=== PATIENT | female | born 1965 | race African-American/Black ===

== ENCOUNTER → 2020-11-30 | Outpatient (CLI) | payer OTHER ==
--- NOTE | 2020-11-30 16:06 | KCIC ---
EXAM: Lumbar spine MRI without contrast. HISTORY: Lumbar radiculopathy. TECHNIQUE: Multiplanar, multisequence magnetic resonance imaging of the lumbar spine was performed wi thout contrast. COMPARISON: None. FINDINGS: There is minimal lumbar scoliosis. There is no significant listhesis. There is degenerative endplate remodeling at the mid and lower lumbar levels. There is disc space narrowing, Schmorl's nod e formation and osteophytosis at L5-S1. There is no acute osseous finding. There is no suspicious oss eous lesion. The conus terminates at L1. At L1-L2, there is no stenosis. At L2-L3, there is mild pleural facet arthropathy. There is mild bilateral foraminal stenosis. There is minimal central canal stenosis. At L3-L4, there is a posterior central to left paracentral disc protrusion with slight superior and i nferior extrusion superimposed on a disc bulge and endplate remodeling. There is mild bilateral facet arthropathy. There is prominent dorsal epidural fat. There is mild bilateral foraminal stenosis. The re is moderate to severe central canal stenosis. At L4-L5, there is a broad-based posterior central disc protrusion superimposed on a disc bulge and e ndplate remodeling. There is moderate bilateral facet arthropathy. There is prominent dorsal epidural fat. There is moderate left greater than right foraminal stenosis. There is moderate to severe centr al canal stenosis. At L5-S1, there is a right paracentral to lateral recess disc protrusion and annular tear with minima l inferior extrusion. There are also bilateral lateral recess to extra foraminal disc osteophyte comp lexes. This is superimposed on a disc bulge and endplate osteophytosis. There is mild bilateral facet arthropathy. There is moderate right and moderate to severe left foraminal stenosis. There is narrow ing of the right lateral recess and abutment of the traversing right S1 nerve root. IMPRESSION: Multilevel degenerative change involving the lumbar spine, described in detail above. Thi s results in minimal central canal stenosis at L2-L3, mild bilateral foraminal and moderate to severe central canal stenosis at L3-L4, moderate left greater than right foraminal and moderate to severe c entral canal stenosis at L4-5, and moderate right and moderate to severe left foraminal stenosis and narrowing of the right lateral recess at L5-S1. Electronically signed by: Nichol Montano MD (11/30/2020 4:04 PM) [id number]
== END ==
LOC: KCIC MRI 15:20
PROVIDERS: ATTEND Orthopaedic Surgery
DX: M47.27 Other spondylosis with radiculopathy, lumbosacral region (principal); M51.17 Intervertebral disc disorders with radiculopathy, lumbosacral region; M48.07 Spinal stenosis, lumbosacral region; M41.86 Other forms of scoliosis, lumbar region; M51.47 Schmorl's nodes, lumbosacral region; M25.78 Osteophyte, vertebrae
CPT/HCPCS: 72148

== ENCOUNTER → 2020-12-17 | Outpatient (CLI) | payer OTHER ==
[~2020-12-17] MED LIST: CHOL5000 PO; HYDR-2145 PO; NAPR220T70 PO
--- NOTE | 2020-12-17 10:27 | PDOC1 ---
INITIAL PAIN CONSULT DATE OF SERVICE: DOS: DATE: 12/17/20 TIME: 10:20 CHIEF COMPLAINT: Chief Complaint: Low back and left greater than right lower extremity pain HISTORY OF PRESENT ILLNESS: 55-year-old female presents with history of pain low back and bilateral lower extremities with greater than right for about 1 year and 2 months. Patient reports she was exercising using a machine at her gym to work the hips and had significant pain after this and has not resolved significantly since that time about a year ago patient reports the pain is progressively increasing after the exercise in the low back and the bilateral lower extremities radiating into the posterior gluteus posterior lateral thigh lateral anterior thigh anterior medial thigh again worse on the left than the right but present bilaterally into the foot on the left side with extended walking or standing patient reports this exacerbates it as does prolonged sitting changing positions getting up from a seated position patient reports it wakes her least once or twice a night from sleep does not affect her bowel bladder control but does affect her ability to walk does not use any assistive devices however. Patient describes pain as stabbing and throbbing the back shooting in the legs radiating tingling with numbness in the legs and feet especially on the left side and aching in the back itself. Patient has had physical therapy and still doing exercises from this also chiropractic treatment, but nothing that is decreasing the pain significantly. Patient has tried ibuprofen as well as Aleve each of which decrease the pain but only very briefly only by about 10% patient reports he is still doing the exercises from her physical therapy and chiropractic visits are about once a week without any lasting help. Patient rates her disability rating 0-10 10 being worst is a 6 with family home responsibilities social activity and sexual behavior 7 with recreation and occupational activities 0 self-care life support activities. Patient did have an MRI scan of the lumbar spine showing multilevel degenerative change with broad-based posterior central disc protrusion at L3-4 L4-5 and L5-S1 causing foraminal stenosis as well as central stenosis with canal stenosis L3-4 moderate left greater than right foraminal and moderate to severe central canal stenosis at L4-5 moderate right and moderate to severe left foraminal stenosis and narrowing of the right lateral recess at L5- S1. PAST MEDICAL HISTORY: PMH: Hypertension, arthritis PREVIOUS SURGERIES: Past Surgical Hx: Hysterectomy, tubal ligation CURRENT MEDICATIONS: Current Meds: Active Scripts Medications Dose Route/Sig Max Daily Dose Days Date Category Dose Instructions Vitamin D3 (Vitamin D) 125 Mcg Capsule 1,000 Mcg PO DAILY 12/17/20 Reported 5,000 UNITS = 125 MCG Aleve (Naproxen Sodium) 220 Mg Tablet 220 Mg PO BID 12/17/20 Reported Hydrochlorothiazide Tablet (Hydrochlorothiazide) 25 Mg Tablet 25 Mg PO DAILY 12/17/20 Reported ALLERGIES; Allergies: Coded Allergies: Sulfa (Sulfonamide Antibiotics) (Verified Allergy, Intermediate, hives, 12/17/20) FAMILY HISTORY: Family Hx: Significant for hypertension and arthritis SOCIAL HISTORY: Social Hx: Patient drinks 1 glass of wine only rarely does not smoke not use any illegal illicit or recreational drugs is lives with her spouse no children living home lives locally in [place], [place] REVIEW OF SYSTEMS: ROS: Positive for those items mentioned in history of present illness, all systems are reviewed, otherwise negative ,and are complete full and well-documented on patient's chart. PHYSICAL EXAM: VS: Blood pressure 165/101 pulse 75 respiration 16 temperature 98.8 F height is 5 foot 7 inches weight is 175 pounds PE: PHYSICAL EXAMINATION: GENERAL: The patient is awake, alert, oriented, appropriate, very pleasant in demeanor. HEENT: Shows normocephalic, atraumatic. Extraocular movements are intact and symmetrical. Oral cavity: Mucous membranes moist and pink. Dentition is intact. NECK: Shows anterior throat supple without palpable lymphadenopathy noted. Swallow reflex symmetrical. CHEST: Shows normal on inspection. Breath sounds are clear bilaterally, no rales rhonchi or wheezes. HEART: Shows S1, S2 clear. No murmurs auscultated. ABDOMEN: Soft, nontender, nondistended, obese. No palpable organomegaly is noted. No rebound or guarding demonstrated. BACK: Shows spine grossly in the midline. Normal-appearing cervical lordotic curvature. There is increased thoracic kyphosis, some mild flattening of the lumbar lordotic curvature. Lumbar paraspinous muscles show symmetrical on inspection, on palpation shows some moderate tenderness diffusely throughout the upper, middle and lower distribution of the paraspinous muscles bilaterally and also into the lower thoracic paraspinous musculature, firm and tender, but without specific trigger points, without radiation of pain. The patient has good rotational motion of the lumbar spine, both laterally as well as extension and flexion without significant difficulty. No tenderness over the spinous processes, sacrum or sacroiliac regions. EXTREMITIES: Lower extremities show deep tendon reflexes 2+ in the patellar and tendo calcaneus tendons. Motor exam is 5 on a scale of 5 with right dorsiflexion, extension, quadriceps and hamstring flexion and 4/5 on the left. Peripheral pulses are 1+ posterior tibial. No peripheral edema is noted bilaterally. Lower extremities are warm and dry to touch, equal in color and appearance. Straight leg raise noted to be positive on the left at approximate 45 degrees decreased with knee flexion, right side is negative. Gaenslen's and Carlos's maneuvers are negative bilaterally. The patient is able to stand, stand on her toes without significant difficulty or loss of balance, walks with a slight favoring gait does appear to favor the left lower extremity mildly but not use any assistive devices to ambulate such as canes or walkers. SKIN: Shows warm and dry, good turgor. No edema. No sores, rashes or bruising throughout. IMPRESSION: Impression: 55-year-old female with 1 year history of low back bilateral lower extremity pain or radicular fashion following L4-5 dermatomal distribution worse on the left than the right. MRI scan lumbar spine as noted Hypertension Arthritis Plan: Discussed with the patient eluding conservative medical management continued physical therapies and interventional techniques. Patient would like to pursue interventional techniques we discussed a lumbar epidural steroid injections description as well as anatomical models to describe the procedure. Patient will wait for preauthorization with her insurance provider and we will have her return and plan for a translaminar approach L4-5 level lumbar epidural steroid injection at that time. In the meantime patient continue with stretching strength exercises she is going to physical therapy and maintain oral analgesics and anti-inflammatories as currently. Also will add Medrol Dosepak patient was given instructions well side effects beware with the medication. NASRA WARE MD Dec 17, 2020 10:27
== END | disposition home or self-care (01) ==
LOC: PNCL 08:29
PROVIDERS: ATTEND Anesthesiology
DX: M54.5 Low back pain (principal); M79.604 Pain in right leg; I10 Essential (primary) hypertension; M19.90 Unspecified osteoarthritis, unspecified site; M48.061 Spinal stenosis, lumbar region without neurogenic claudication; Z90.710 Acquired absence of both cervix and uterus; Z98.51 Tubal ligation status; Z98.890 Other specified postprocedural states; Z79.899 Other long term (current) drug therapy; Z82.49 Family history of ischemic heart disease and other diseases of the circulatory system; Z88.2 Allergy status to sulfonamides; Z88.8 Allergy status to other drugs, medicaments and biological substances
CPT/HCPCS: 99214; G0463

== ENCOUNTER → 2020-12-31 | Outpatient (CLI) | payer OTHER ==
[~2020-12-31] MED LIST changes: +IOHEXOL 180 MG/ML 10 ML VIAL. ONE; +methylPREDNISolone ACETATE 80 MG/ML VIAL. ONE
--- NOTE | 2020-12-31 08:52 | PDOC ---
Progress Note - Pain Clinic Date of Service: DOS: DATE: 12/31/20 TIME: 08:49 Diagnosis: Dx: Lumbar radiculopathy with lumbar degenerative disease and lumbar spinal stenosis History or Present Illness: HPI: 55-year-old female returns for follow-up status post initial evaluation patient had preauthorization with her insurance provider and returns today with report of new pain which is now in the right lower extremity with initially was only on the left lower extremity but now is in both lower extremities posterior gluteus posterior lateral thigh lateral anterior thigh anteromedial thighs medial lower legs patient reports is still worse on the left than the right side is now painful which is new finding for her patient report is aching sharp tight shooting in the back tingling and numbness in both of the legs radiating to both of her legs patient rates is a 9 on scale 10 is worse over the past week 7 on average 6 its least is a 6 today patient reports no motor or sensory deficits no bowel or bladder incontinence. Physical Exam: VS: Blood pressure is 152/93 pulse 65 respirations 18 temperature 98.4 F weight is 176 pounds PE: PHYSICAL EXAMINATION: GENERAL: The patient is awake, alert, oriented, appropriate, very pleasant dem eanor HEENT: Shows normocephalic, atraumatic. Extraocular movements are intact and symmetrical. Oral cavity: Mucous membranes moist and pink. NECK: Shows anterior throat supple without palpable lymphadenopathy noted. Swallow reflex symmetrical. CHEST: Shows normal on inspection. Breath sounds are clear bilaterally, no rales or. HEART: Shows S1, S2 clear. No murmurs auscultated. ABDOMEN: Soft, nontender, nondistended. No palpable organomegaly is noted. BACK: Shows spine grossly in the midline. Normal-appearing cervical lordotic curvature. There is slightly increased thoracic kyphosis, some minor flattening of the lumbar lordotic curvature. Lumbar paraspinous muscles show symmetrical on inspection, on palpation shows some moderate tenderness diffusely throughout the upper, middle and lower distribution of the paraspinous muscles, but without specific trigger points, without radiation of pain. The patient has good rotational motion of the lumbar spine, both laterally as well as extension and flexion without significant difficulty. EXTREMITIES: Lower extremities show deep tendon reflexes 2+ in the patellar and tendo calcaneus tendons. Motor exam is 5 on a scale of 5 with right dorsiflexion, extension, quadriceps and hamstring flexion and 4/5 on the left. Peripheral pulses are [] posterior tibial. No peripheral edema is noted bilaterally. Lower extremities are warm and dry to touch, equal in color and appearance. SKIN: Shows warm and dry, good turgor. No edema. No sores, rashes or bruising throughout. Procedure: Procedure: Options discussed with patient. Patient's old chart was reviewed as her current medication regimen updated current review of systems updated today as well. We will proceed with a lumbar epidural steroid injection today with fluoroscopic guidance. Risks were discussed including but not limited to: Bleeding, infection, possibility of epidural hematoma and subsequent neurological compromise, dural puncture, headaches, spinal cord and/or nerve damage, side effects of steroid medication, and poor results regarding pain control. Patient understands and wished to proceed. Patient return to the clinic in approximately 2 weeks for follow-up, was counseled as return appointment, activity level, and side effects to be aware of. Medication Injected: Med Injected: Procedure is lumbar epidural steroid injection under local anesthetic using sterile prep and drape at the L4-L5 level using C-arm fluoroscopic guidance in both AP and lateral views medications injected is 120 mg Depo-Medrol +10mL preservative-free normal saline and 2 mL contrast- condition at discharge is stable patient tolerated procedure well had no complications. Condition at Discharge: Condition at Discharge: Condition at discharge is stable, patient tolerated the procedure well and had no complications. NASRA WARE MD Dec 31, 2020 08:52
--- NOTE | 2020-12-31 08:53 | PDOC4 ---
Procedure Note: ICD 10 Code: ICD 10 Code: M54.16 M4 8.06 M51.36 Procedure Note: Patient was consented for lumbar epidural steroid injection with fluoroscopic guidance. Risks were discussed including but not limited to: Bleeding, infection, possibility of epidural hematoma and subsequent neurological compromise, dural puncture, headaches, spinal cord and/or nerve damage, side effects of steroid medication, and poor results regarding pain control. Patient understands and wished to proceed. Procedure is lumbar epidural steroid injection under local anesthetic using monae rile prep and drape at the L4-L5 level using C-arm fluoroscopic guidance in both AP and lateral views medications injected is 120 mg Depo-Medrol +10mL preservative-free normal saline and 2 mL contrast- condition at discharge is stable patient tolerated procedure well had no complications. NASRA WARE MD Dec 31, 2020 08:52
== END | disposition home or self-care (01) ==
LOC: PNCL 08:10
PROVIDERS: ATTEND Anesthesiology
DX: M51.16 Intervertebral disc disorders with radiculopathy, lumbar region (principal); M48.061 Spinal stenosis, lumbar region without neurogenic claudication; Z79.899 Other long term (current) drug therapy; Z88.2 Allergy status to sulfonamides
CPT/HCPCS: 62323; J1040; Q9965; 62322

== ENCOUNTER → 2021-01-14 | Outpatient (CLI) | payer OTHER ==
[~2021-01-14] MED LIST changes: -IOHEXOL 180 MG/ML 10 ML VIAL. ONE; -methylPREDNISolone ACETATE 80 MG/ML VIAL. ONE
--- NOTE | 2021-01-14 08:44 | PDOC ---
Progress Note - Pain Clinic Date of Service: DOS: DATE: 01/14/21 TIME: 08:41 Diagnosis: Dx: Lumbar radiculopathy with lumbar degenerative disease and lumbar spinal stenosis History or Present Illness: HPI: 55-year-old female returns for follow-up status post lumbar epidural steroid injection x1. Patient reports about 75% improvement initially and for the first 2 weeks and the pain began to return as now about 50% overall but still improved with pain in the low back now right side is worse than left which is new finding the last visit her left side is always been more painful one but today her right side is much more painful patient reports it is in the low back bilateral lower extremities posterior gluteus posterior lateral thigh lateral anterior thigh anteromedial thighs medial lower legs as well still more on the left lower leg but on the right side in the anterior upper leg patient reports is tight and tingling stabbing at times radiating to the lower extremities as described can be burning cramping in the back patient reports is worse with walking standing changing positions better with sitting or laying down but has been waking her from sleep again over the past week or so patient reports prior to that she was doing much better with sleeping also distance walking doing household activities work activities travel with greater ease and comfort doing most activities with much greater ease was very pleased with her progress although the pain is returning now patient reports still not back to baseline and still about 50% overall improvement even after several weeks patient reports her pain is a 7 on scale 10 is worst over the past week 6 on average 5 its least is a 5 today. Patient reports no bowel or bladder incontinence no loss of motor function but occasional weakness in the left leg over the past week or so. Physical Exam: VS: Blood pressure is 145/97 pulse 75 respirations 16 temperature 98.5 F weight is 176 pounds PE: PHYSICAL EXAMINATION: GENERAL: The patient is awake, alert, oriented, appropriate, very pleasant in demeanor HEENT: Shows normocephalic, atraumatic. Extraocular movements are intact and symmetrical. Oral cavity: Mucous membranes moist and pink. Dentition is intact. NECK: Shows anterior throat supple without palpable lymphadenopathy noted. Swallow reflex symmetrical. CHEST: Shows normal on inspection. Breath sounds are clear bilaterally, no rales or rhonchi auscultated. HEART: Shows S1, S2 clear. No murmurs auscultated. ABDOMEN: Soft, nontender, nondistended, obese. No palpable organomegaly is noted. BACK: Shows spine grossly in the midline. Normal-appearing cervical lordotic curvature. There is slightly increased thoracic kyphosis, some flattening of the lumbar lordotic curvature. Lumbar paraspinous muscles show symmetrical on inspection, on palpation shows some moderate tenderness diffusely throughout the upper, middle and lower distribution of the paraspinous muscles, but without specific trigger points, without radiation of pain. The patient has good rotational motion of the lumbar spine, both laterally as well as extension and flexion without significant difficulty. EXTREMITIES: Lower extremities show deep tendon reflexes 2+ in the patellar and tendo calcaneus tendons. Motor exam is 5 on a scale of 5 with right dorsiflexion, extension, quadriceps and hamstring flexion and 4/5 on the left. Peripheral pulses are 1+ posterior tibial. No peripheral edema is noted bilaterally. Lower extremities are warm and dry to touch, equal in color and a ppearance. SKIN: Shows warm and dry, good turgor. No edema. No sores, rashes or bruising throughout. Procedure: Procedure: Options discussed with the patient. Patient chart was reviewed as her current medication regimen updated current view of systems updated today as well. We will preauthorize patient for lumbar epidural steroid injection she did very well after the first injection with pain returning now and radicular fashion following L4-5 dermatomal distribution now more prominent on the right than the left but present bilaterally. Also will start new medication of meloxicam 15 mg once daily. Patient was given instructions well side effects to be aware with the medication. Once approved, patient will return we will plan on translaminar approach L4-5 level lumbar epidural steroid injection with fluoroscopic guidance at that time. Medication Injected: Med Injected: None Condition at Discharge: Condition at Discharge: Condition at discharge is stable. NASRA WARE MD Jan 14, 2021 08:44
== END | disposition home or self-care (01) ==
LOC: PNCL 08:09
PROVIDERS: ATTEND Anesthesiology
DX: M51.16 Intervertebral disc disorders with radiculopathy, lumbar region (principal); M48.061 Spinal stenosis, lumbar region without neurogenic claudication; Z79.899 Other long term (current) drug therapy; Z88.2 Allergy status to sulfonamides
CPT/HCPCS: 99212; G0463

== ENCOUNTER → 2021-01-28 | Outpatient (CLI) | payer OTHER ==
[~2021-01-28] MED LIST changes: +IOHEXOL 180 MG/ML 10 ML VIAL. ONE; +MELO15TA23 PO; +methylPREDNISolone ACETATE 80 MG/ML VIAL. ONE
--- NOTE | 2021-01-28 13:48 | PDOC4 ---
Procedure Note: ICD 10 Code: ICD 10 Code: M54.16 M4 8.06 M51.36 Procedure Note: Patient was consented for lumbar epidural steroid injection with fluoroscopic guidance. Risks were discussed including but not limited to: Bleeding, infection, possibility of epidural hematoma and subsequent neurological compromise, dural puncture, headaches, spinal cord and/or nerve damage, side effects of steroid medication, and poor results regarding pain control. Patient understands and wished to proceed. Procedure is lumbar epidural steroid injection under local anesthetic using ster ile prep and drape at the L4-5 level using C-arm fluoroscopic guidance in both AP and lateral views medications injected is 120 mg Depo-Medrol +10mL preservative-free normal saline and 2 mL contrast- condition at discharge is stable patient tolerated procedure well had no complications. NASRA WARE MD Jan 28, 2021 13:48
--- NOTE | 2021-01-28 13:48 | PDOC ---
Progress Note - Pain Clinic Date of Service: DOS: DATE: 01/28/21 TIME: 13:44 Diagnosis: Dx: Lumbar radiculopathy with lumbar degenerative disease and lumbar spinal stenosis History or Present Illness: HPI: 56-year-old female returns status post lumbar epidural steroid injection x1 with about 75% improvement for the first 2 weeks now by 50% provement overall with the pain returning now still in the low back and left lower extremity patient reports her right lower extremity now is as painful as the left side this is come on over the past the past week or so without any specific injury or accident that she is aware but is now in the right side just as significant as the left side posterior gluteus lateral thigh anterior thigh medial thigh medial lower leg and feels tight and spastic in the right upper thigh patient reports is tingling and burning radiating constant can be tight as well rates an eight o n scale 10 is worse with the past week seven on average six its least and is a six today. Patient reports no bowel or bladder incontinence patient reports awakening from sleep about every 5-6 hours when originally to do much better with distance walking doing household activities sleeping better as well as work activities. Physical Exam: VS: Blood pressure is 150/105 pulse 73 respirations 18 temperature 90.3 F weight is 176 pounds PE: PHYSICAL EXAMINATION: GENERAL: The patient is awake, alert, oriented, appropriate, very pleasant in demeanor HEENT: Shows normocephalic, atraumatic. Extraocular movements are intact and symmetrical. Oral cavity: Mucous membranes moist and pink. Dentition is intact. NECK: Shows anterior throat supple without palpable lymphadenopathy noted. Swallow reflex symmetrical. CHEST: Shows normal on inspection. Breath sounds are clear bilaterally, no rales or. HEART: Shows S1, S2 clear. No murmurs auscultated. ABDOMEN: Soft, nontender, nondistended, obese. No palpable organomegaly is noted. BACK: Shows spine grossly in the midline. Normal-appearing cervical lordotic curvature. There is mildly increased thoracic kyphosis, some flattening of the lumbar lordotic curvature. Lumbar paraspinous muscles show symmetrical on inspection, on palpation shows some moderate tenderness diffusely throughout the upper, middle and lower distribution of the paraspinous muscles, but without specific trigger points, without radiation of pain. The patient has good rotational motion of the lumbar spine, both laterally as well as extension and flexion without significant difficulty. EXTREMITIES: Lower extremities show deep tendon reflexes 2+ in the patellar and tendo calcaneus tendons. Motor exam is five on a scale of 5 with right dorsiflexion, extension, quadriceps and hamstring flexion and four/5 on the left. Peripheral pulses are 1+ posterior tibial. New peripheral edema is noted bilaterally. Lower extremities are warm and dry. SKIN: Shows warm and dry, good turgor. No edema. No sores, rashes or bruising throughout. Procedure: Procedure: Options discussed with patient. Patient chart reviews her current medication regimen updated current view of systems updated today as well. We will proceed with a lumbar epidural steroid from today with fluoroscopic guidance. Risks were discussed including but not limited to: Bleeding, infection, possibility of epidural hematoma and subsequent neurological compromise, dural puncture, headaches, spinal cord and/or nerve damage, side effects of steroid medication, and poor results regarding pain control. Patient understands and wished to proceed. Return to clinic in approximate 2 weeks for follow-up, was counseled as return appointment, activity level, and side effect to be aware of. Medication Injected: Med Injected: Procedure is lumbar epidural steroid injection under local anesthetic using sterile prep and drape at the L4-5 level using C-arm fluoroscopic guidance in both AP and lateral views medications injected is 120 mg Depo-Medrol +10mL preservative-free normal saline and 2 mL contrast- condition at discharge is stable patient tolerated procedure well had no complications. Condition at Discharge: Condition at Discharge: Condition at discharge is stable, patient tolerated the procedure well and had no complications. NASRA WARE MD Jan 28, 2021 13:48
== END | disposition home or self-care (01) ==
LOC: PNCL 13:14
PROVIDERS: ATTEND Anesthesiology
DX: M51.16 Intervertebral disc disorders with radiculopathy, lumbar region (principal); M48.061 Spinal stenosis, lumbar region without neurogenic claudication; Z79.899 Other long term (current) drug therapy; Z88.2 Allergy status to sulfonamides
CPT/HCPCS: 62323; J1040; Q9965

== ENCOUNTER → 2021-02-24 | Outpatient (CLI) | payer OTHER ==
[~2021-02-24] MED LIST changes: -IOHEXOL 180 MG/ML 10 ML VIAL. ONE; -methylPREDNISolone ACETATE 80 MG/ML VIAL. ONE
--- NOTE | 2021-02-24 14:17 | PDOC ---
Progress Note - Pain Clinic Date of Service: DOS: DATE: 02/24/21 TIME: 14:13 Diagnosis: Dx: Lumbar radiculopathy with lumbar degenerative disease and lumbar spinal stenosis History or Present Illness: HPI: 56-year-old female returns for follow-up status post lumbar epidural steroid injection. Patient reports about 80% improvement after the last injection in the low back pain in the right lower extremity pain, patient reports the pain is returning now in the low back and the right lower extremity into the posterior gluteus lateral thigh anterior thigh medial thigh medial lower leg as well as worse with walking standing changing positions better with laying down but is beginning to awaken her from sleep once again patient reports admission to do much better distance walking doing household activities work activities try with greater ease and comfort and sleeping better now is beginning to disturb his sleep and is having some increased pain with walking. Patient reports pain is tight and shooting tingling can be radiating on and off in intensity patient rates pain as a 7 on scale 10 is worse over the past week 5 on average for its least is a 4 today. Patient reports no bowel or bladder incontinence no loss of motor function with significant fatigability in the lower extremities with climbing stairs specially going up or down the stairs. Physical Exam: VS: Blood pressure is 161/98 pulse 69 respirations 18 temperature 0.3 F height is 5 feet 7 inches weight is 179 pounds. PE: PHYSICAL EXAMINATION: GENERAL: The patient is awake, alert, oriented, appropriate, very pleasant in demeanor HEENT: Shows normocephalic, atraumatic. Extraocular movements are intact and symmetrical. Oral cavity: Mucous membranes moist and pink. Dentition is intact. NECK: Shows anterior throat supple without palpable lymphadenopathy noted. Swallow reflex symmetrical. CHEST: Shows normal on inspection. Breath sounds are clear bilaterally. HEART: Shows S1, S2 clear. No murmurs auscultated. ABDOMEN: Soft, nontender, nondistended. No palpable organomegaly is noted. BACK: Shows spine grossly in the midline. Normal-appearing cervical lordotic curvature. There is slightly increased thoracic kyphosis, some flattening of the lumbar lordotic curvature. Lumbar paraspinous muscles show symmetrical on inspection, on palpation shows some moderate tenderness diffusely throughout the upper, middle and lower distribution of the paraspinous muscles, but without specific trigger points, without radiation of pain. The patient has good rotational motion of the lumbar spine, both laterally as well as extension and flexion without significant difficulty. EXTREMITIES: Lower extremities show deep tendon reflexes 2+ in the patellar and tendo calcaneus tendons. Motor exam is 4 on a scale of 5 with right dorsiflexion, extension, quadriceps and hamstring flexion and 5/5 on the left. Peripheral pulses are 1+ posterior tibial. No peripheral edema is noted bilaterally. Lower extremities are warm and dry. SKIN: Shows warm and dry, good turgor. No edema. No sores, rashes or bruising throughout. Procedure: Procedure: Options were discussed with the patient. Patient chart reviews her current medication regimen updated current review of systems updated today as well. We will preauthorize patient for a third lumbar epidural steroid injection with fluoroscopic guidance. Patient continues to have clinical radiculopathy in the right lower extremity L4-5 dermatomal distribution although significantly better the pain is returning now in the L4-5 dermatomal distribution on the right lower extremity. Once approved, patient will return to clinic we will plan on L4-5 translaminar approach lumbar epidural steroid injection with fluoroscopic guidance. Medication Injected: Med Injected: None Condition at Discharge: Condition at Discharge: Condition at discharge is stable. NASRA WARE MD Feb 24, 2021 14:17
== END | disposition home or self-care (01) ==
LOC: PNCL 13:43
PROVIDERS: ATTEND Anesthesiology
DX: M51.16 Intervertebral disc disorders with radiculopathy, lumbar region (principal); M48.061 Spinal stenosis, lumbar region without neurogenic claudication; Z79.899 Other long term (current) drug therapy; Z88.2 Allergy status to sulfonamides
CPT/HCPCS: 99212; G0463

== ENCOUNTER → 2021-03-18 | Outpatient (CLI) | payer OTHER ==
[~2021-03-18] MED LIST changes: +IOHEXOL 180 MG/ML 10 ML VIAL. ONE; +methylPREDNISolone ACETATE 40 MG/ML VIAL. ONE; +methylPREDNISolone ACETATE 80 MG/ML VIAL. ONE
--- NOTE | 2021-03-18 14:45 | PDOC ---
Progress Note - Pain Clinic Date of Service: DOS: DATE: 03/18/21 TIME: 14:42 Diagnosis: Dx: Lumbar radiculopathy lumbar degenerative disease lumbar spinal stenosis History or Present Illness: HPI: 56-year-old female returns for follow-up status post lumbar epidural steroid injection x2 with about 50% improvement overall patient reports still significant pain low back and right lower extremity now on the left side of the low back as well which is generally only on the right side but now is on the left side also patient reports is an 8 on scale 10 is worse over the past week 7 on average 5 its least is a 7 today patient scribes aching and tight radiating can be stabbing as well worse with walking standing changing position so she is continue to walk and stretch throughout this time. It is becoming more difficult patient reports it occasionally wakes her from sleep at night most nights better with sitting or laying down most days patient reports no bowel or bladder incontinence no motor deficits but significant fatigability specially the right leg with ambulation. Physical Exam: VS: Blood pressure is 140/98 pulse 63 respirations 16 temperature 98.2 F weight is 177 pounds PE: PHYSICAL EXAMINATION: GENERAL: The patient is awake, alert, oriented, appropriate, very pleasant in demeanor HEENT: Shows normocephalic, atraumatic. Extraocular movements are intact and symmetrical. Oral cavity: Mucous membranes moist and pink. Dentition is intact. NECK: Shows anterior throat supple without palpable lymphadenopathy noted. Swallow reflex symmetrical. CHEST: Shows normal on inspection. Breath sounds are clear bilaterally. HEART: Shows S1, S2 clear. No murmurs auscultated. ABDOMEN: Soft, nontender, nondistended. BACK: Shows spine grossly in the midline. Normal-appearing cervical lordotic curvature. There is slightly increased thoracic kyphosis, some flattening of the lumbar lordotic curvature. Lumbar paraspinous muscles show symmetrical on inspection, on palpation shows some moderate tenderness diffusely throughout the upper, middle and lower distribution of the paraspinous muscles without specific trigger points, without radiation of pain. The patient has good rotational motion of the lumbar spine, both laterally as well as extension and flexion without significant difficulty. EXTREMITIES: Lower extremities show deep tendon reflexes 2+ in the patellar and tendo calcaneus tendons. Motor exam is 4 on a scale of 5 with right dorsiflexion, extension, quadriceps and hamstring flexion and 5/5 on the left. Peripheral pulses are 1 posterior tibial. No peripheral edema is noted bilaterally. Lower extremities are warm and dry to touch, equal in color and appearance. SKIN: Shows warm and dry, good turgor. No edema. No sores, rashes or bruising throughout. Procedure: Procedure: Options were discussed with the patient. Patient chart was reviewed as her current medication regimen updated current review of systems updated today as well. We will proceed with a lumbar epidural steroid injection stable fluoroscopic guidance risks were discussed including but not limited to: Bleedi ng, infection, possibility of epidural hematoma and subsequent neurological compromise, dural puncture, headaches, spinal cord and/or nerve damage, side effects of steroid medication, and poor results regarding pain control. Patient understands and wished to proceed. Return to clinic in approximate 2 weeks for follow-up, was counseled as return appointment, activity level and side effects to be aware of. Medication Injected: Med Injected: Procedure is lumbar epidural steroid injection under local anesthetic using sterile prep and drape at the L4-5 level using C-arm fluoroscopic guidance in both AP and lateral views medications injected is 120 mg Depo-Medrol +10mL preservative-free normal saline and 2 mL contrast- condition at discharge is stable patient tolerated procedure well had no complications. Condition at Discharge: Condition at Discharge: Condition at discharge is stable, patient tolerated the procedure well and had no complications. NASRA WARE MD Mar 18, 2021 14:45
--- NOTE | 2021-03-18 14:46 | PDOC4 ---
Procedure Note: ICD 10 Code: ICD 10 Code: M54.16 M4 8.06 M51.36 Procedure Note: Patient was consented for lumbar epidural steroid injection with fluoroscopic guidance. Risks were discussed including but not limited to: Bleeding, infection, possibility of epidural hematoma and subsequent neurological compromise, dural puncture, headaches, spinal cord and/or nerve damage, side effects of steroid medication, and poor results regarding pain control. Patient understands and wished to proceed. Patient will return to clinic in approximate 2 weeks for follow-up. Procedure is lumbar epidural steroid injection under local anesthetic using sterile prep and drape at the L4-5 level using C-arm fluoroscopic guidance in both AP and lateral views medications injected is 120 mg Depo-Medrol +10mL preservative-free normal saline and 2 mL contrast- condition at discharge is stable patient tolerated procedure well had no complications. NASRA WARE MD Mar 18, 2021 14:46
== END | disposition home or self-care (01) ==
LOC: PNCL 13:48
PROVIDERS: ATTEND Anesthesiology
DX: M51.16 Intervertebral disc disorders with radiculopathy, lumbar region (principal); M48.061 Spinal stenosis, lumbar region without neurogenic claudication; Z79.899 Other long term (current) drug therapy; Z88.2 Allergy status to sulfonamides
CPT/HCPCS: 62323; J1030; J1040; Q9965